=== PATIENT | male | born 1980 | race Hispanic/Latino ===

== ENCOUNTER 2017-11-21 04:16 | Emergency (ER) | payer OTHER ==
[2017-11-21] MEDS ORDERED: DEXAMETHASONE SOD PHOSPHATE 10MG/ML 1ML VIAL ONE (04:41)
[2017-11-21] MEDS ORDERED: METHYLPREDNISOLONE SOD SUCC 125MG/2ML VIAL ONE (04:41)
[2017-11-21] MEDS ORDERED: ACETAMINOPHEN-CODEINE ELIXIR 5 ML UDCUP ONE (04:42)
[2017-11-21] MEDS ORDERED: LEVOFLOXACIN 500 MG TABLET ONE (04:42)
[2017-11-21] MEDS ORDERED: IBUPROFEN 100 MG/5 ML SUSP UDCUP ONE (04:49)
== END 2017-11-21 05:11 | disposition home or self-care (01) ==
LOC: EDH 04:16
DX: J06.9 Acute upper respiratory infection, unspecified (principal); J30.9 Allergic rhinitis, unspecified; Z72.0 Tobacco use
CPT/HCPCS: 96372 ×2; 99284; J1100; J2930

== ENCOUNTER 2023-02-01 18:05 | Emergency (ER) | payer OTHER ==
[~2023-02-01] VITALS: Ht 177.8 cm; Wt 207.9 kg
[2023-02-01 18:06] VITALS: BP 141/83; PULSE 93; RESP 20
[2023-02-01 19:12] LABS: SARS-CoV-2, RNA, NAAT NEGATIVE SARS CoV-2 (NEGATIVE)
[2023-02-01 19:18] LABS: INFLUENZA TYPE A Negative For Type A (NEGATIVE); INFLUENZA TYPE B Negative For Type B (NEGATIVE)
[2023-02-01 20:43] LABS: BASOPHILS # (AUTO) 0.02 K/uL (0.00-0.20); BASOPHILS % (AUTO) 0.1 % (0.0-5.0); EOSINOPHILS # (AUTO) 0.01 K/uL (0.00-0.70); EOSINOPHILS % (AUTO) 0.1 % (0.0-8.0); HEMATOCRIT 38.9 % (42-54); IMMATURE GRANULOCYTE ABSOLUTE 0.07 K/uL (0-1); LYMPHOCYTES % (AUTO) 6.9 % (21.0-51.0); MEAN CORPUSCULAR HEMOGLOBIN 27.1 pg (27.0-33.0); MEAN CORPUSCULAR HGB CONC 32.6 g/dL (32.0-36.0); MEAN CORPUSCULAR VOLUME 83.1 fL (79-99); MONOCYTES # (AUTO) 0.8 K/uL (0.1-1.0); MONOCYTES % (AUTO) 6.1 % (3.0-13.0); NEUTROPHILS # (AUTO) 11.9 K/uL (1.8-7.7); NEUTROPHILS % (AUTO) 86.3 % (40.0-77.0); PLATELET COUNT (AUTO) 277 K/uL (130-400); RED BLOOD CELL COUNT(AUTO) 4.68 MIL/uL (4.50-6.20); WHITE BLOOD COUNT (AUTO) 13.8 K/uL (4.8-10.8)
[2023-02-01 20:59] LABS: CREATININE 1.1 mg/dL (0.5-1.5); POTASSIUM 3.9 mmol/L (3.5-5.1)
[2023-02-01 21:03] LABS: INR 1.06 (0.85-1.15); PROTHROMBIN TIME 12.3 SEC (9.6-11.6)
[2023-02-01 21:04] LABS: TOTAL PROTEIN, SERUM 8.8 g/dL (6.0-8.3)
[2023-02-01] MEDS ORDERED: TRAMADOL HCL 50 MG TABLET PO ONE (22:00)
[2023-02-01] MEDS ORDERED: CEFTRIAXONE 1G VIAL IVPB ONE (22:00)
[2023-02-01] MEDS ORDERED: CEPH500B PO (22:01)
== END 2023-02-01 22:47 | disposition home or self-care (01) ==
LOC: EDH 18:05
DX: L03.116 Cellulitis of left lower limb (principal); R51.9 Headache, unspecified; I10 Essential (primary) hypertension; F17.200 Nicotine dependence, unspecified, uncomplicated; Z20.822 Contact with and (suspected) exposure to COVID-19
CPT/HCPCS: 99285; 96365; 93971; 87635; 80053; 85025; 85610; 87804 ×2; 83605; 36415; C9803; J0696

== ENCOUNTER 2023-11-05 05:11 | Emergency (ER) | payer OTHER ==
[~2023-11-05 05:11] MED LIST: CEPH500B PO
[2023-11-05] MEDS: SILVER NITRATE APPLICATOR 1 SWAB TP ONE (05:49)
[2023-11-05] MEDS: SILVER NITRATE APPLICATOR 1 SWAB TP SCH (05:49)
[2023-11-05] MEDS ORDERED: CEPH500B PO (06:06)
[2023-11-05] MEDS: TETANUS/DIPHTHERIA TOXOID [ADULT] 0.5 ML VIAL IM ONE (06:16)
== END 2023-11-05 06:16 | disposition home or self-care (01) ==
LOC: EDH 05:11
DX: I86.8 Varicose veins of other specified sites (principal)
CPT/HCPCS: 90471; 90714

== ENCOUNTER 2024-04-22 12:39 | Emergency (ER) | payer SELFPAY ==
[~2024-04-22] VITALS: Ht 177.8 cm; Wt 171.5 kg
[2024-04-22 14:35] VITALS: BP 138/84; PULSE 64; RESP 18; TEMP 98.1; O2SAT 98
[2024-04-22] MEDS: HYDROcodone/APAP 5/325 1 TAB TABLET PO STA (14:46)
[2024-04-22] MEDS ORDERED: SULF1TAB42 PO (15:00)
== END 2024-04-22 15:05 | disposition home or self-care (01) ==
LOC: EDH 12:39
DX: L03.116 Cellulitis of left lower limb (principal); I10 Essential (primary) hypertension; F17.200 Nicotine dependence, unspecified, uncomplicated; Z79.899 Other long term (current) drug therapy